=== PATIENT | female | born 1995 | race Caucasian/White ===

== ENCOUNTER 2017-02-07 17:43 | Emergency (ER) | payer BC ==
[2017-02-07 18:10] VITALS: BP 120/63
[2017-02-07] MEDS ORDERED: Sodium Chloride 0.9% 1,000 ML IV ONE (18:38)
[2017-02-07] MEDS ORDERED: HYDROmorphone 0.5 MG/0.5 ML Syringe IVPUSH ONE (18:38)
[2017-02-07] MEDS ORDERED: Ondansetron 4 MG/2 ML SDV IVPUSH ONE (18:38)
[2017-02-07] MEDS ORDERED: Sodium Chloride 0.9% 10 ML Syringe FLUSH PRN ×2 (18:38→20:08)
[2017-02-07] MEDS ORDERED: Iopamidol 612 MG/ML 150 ML Bottle IVPUSH ONE (20:08)
[2017-02-07] MEDS ORDERED: Diatrizoate Meglumine/Diatrizoate Sodium 37% 120 ML Bottle PO ONE (20:08)
--- NOTE | 2017-02-07 20:54 | EDM.PDOC ---
ED HPI GENERAL MEDICAL PROBLEM - General Chief Complaint: Abdominal Pain Stated Complaint: LOWER ABDOMINAL PAIN Time Seen by Provider: 02/07/17 18:30 Source of Information: Reports: Patient History Limitations: Reports: No Limitations - History of Present Illness INITIAL COMMENTS - FREE TEXT/NARRATIVE: 21-year-old female presents for evaluation and treatment of abdominal pain. Patient was sent over to us from the [facility] [facility]. Patient reports that she experienced some slight abdominal discomfort on Friday but it resolved on its own. She now reports severe lower abdominal pain and cramping that started about 45 minutes prior to arrival in the ER. She states it is located in her lower abdomen but is worse around her umbilicus. She reports associated symptoms of decreased appetite, nausea, vomiting, and diarrhea. She states that she has had about 3 or 4 loose watery stools per day since Friday. Patient reports that she vomited on Friday and Friday and a small amount of Friday. She denies any fevers, chills, dysuria, hematuria, melena, hematochezia or constipation. Patient has been taking Midol, Pepto and Tums without any relief. Patient reports that the bumps in the road worsen her abdominal pain. Patient is unsure of her last menstrual period states it has been at least 3 months ago. She is not on any medications. Reports normally she has an irregular menstrual cycle. States there is a chance of . Patient denies any alcohol or drug use. Last intake was about 3 hours prior to arrival in the ER. Lower Abdomen Pain Score (Numeric/FACES): 5 - Related Data Allergies Allergy/AdvReac Type Severity Reaction Status Date / Time No Known Allergies Allergy Verified 02/07/17 17:55 Home Meds: Home Meds Magnesium Citrate [Citroma] 296 ml PO ASDIRECTED #1 bottle 02/07/17 [Rx] Past Medical History Respiratory History: Reports: Asthma Genitourinary History: Reports: UTI, Recurrent Musculoskeletal History: Reports: Fracture Neurological History: Reports: Migraines Dermatologic History: Reports: Eczema - Infectious Disease History Infectious Disease History: Reports: Chicken Pox Social & Family History - Tobacco Use Smoking Status *Q: Never Smoker Second Hand Smoke Exposure: Yes - Caffeine Use Caffeine Use: Reports: Soda - Recreational Drug Use Recreational Drug Use: No ED ROS GENERAL - Review of Systems Review Of Systems: See Below Constitutional: Denies: Fever, Chills GI/Abdominal: Reports: Abdominal Pain (lower abd), Diarrhea, Decreased Appetite , Nausea, Vomiting. Denies: Constipation, Hematochezia, Melena : Reports: No Symptoms. Denies: Dysuria, Flank Pain, Hematuria ED EXAM, GI/ABD - Physical Exam Exam: See Below Exam Limited By: No Limitations General Appearance: Alert, WD/WN, No Apparent Distress Respiratory/Chest: No Respiratory Distress, Lungs Clear, Normal Breath Sounds Cardiovascular: Normal Peripheral Pulses, Regular Rate, Rhythm, No Murmur GI/Abdominal: Normal Bowel Sounds, Soft, Tenderness (periumbilical; left lower quadrant), Other (pain with heel percussion). No: Rebound, McBurney's Sign, Psoas Sign, Obturator Sign Neurological: Alert, Oriented, Normal Cognition Psychiatric: Normal Affect, Normal Mood Skin Exam: Warm, Dry, Normal Color Course - Vital Signs Last Recorded V/S: Last Vital Signs Temp 36.6 C 02/07/17 17:55 Pulse 70 02/07/17 17:55 Resp 16 02/07/17 17:55 BP 120/63 02/07/17 17:55 Pulse Ox 96 02/07/17 17:55 - Orders/Labs/Meds Labs: Laboratory Tests 02/07/17 02/07/17 02/07/17 Range/Units 18:10 18:10 18:45 WBC 10.35 H (3.98-10.04) K/mm3 RBC 5.05 (3.98-5.22) M/mm3 Hgb 15.3 (11.2-15.7) gm/L Hct 44.1 (34.1-44.9) % MCV 87.3 (79.4-94.8) fl MCH 30.3 (25.6-32.2) pg MCHC 34.7 (32.2-35.5) g/dl RDW Std Deviation 38.7 (36.4-46.3) fL Plt Count 307 (182-369) K/mm3 MPV 9.7 (9.4-12.3) fl Neutrophils % (Manual) 57 (40-60) % Band Neutrophils % 0 (0-10) % Lymphocytes % (Manual) 30 (20-40) % Atypical Lymphs % 0 % Monocytes % (Manual) 6 (2-10) % Eosinophils % (Manual) 7 H (0.7-5.8) % Basophils % (Manual) 0 L (0.1-1.2) Platelet Estimate Adequate Plt Morphology Comment Normal RBC Morph Comment Normal Sodium (136-145) mEq/L Potassium (3.5-5.1) mEq/L Chloride (98-107) mEq/L Carbon Dioxide (21-32) mEq/L Anion Gap (5-15) BUN (7-18) mg/dL Creatinine (0.55-1.02) mg/dL Est Cr Clr Drug Dosing mL/min Estimated GFR (MDRD) (>60) mL/min BUN/Creatinine Ratio (14-18) Glucose (74-106) mg/dL Calcium (8.5-10.1) mg/dL Total Bilirubin (0.2-1.0) mg/dL AST (15-37) U/L ALT (14-59) U/L Alkaline Phosphatase (46-116) U/L C-Reactive Protein (<1.0) mg/dL Total Protein (6.4-8.2) g/dl Albumin (3.4-5.0) g/dl Globulin gm/dL Albumin/Globulin Ratio (1-2) Urine Color Light yellow (Yellow) Urine Appearance Clear (Clear) Urine pH 7.0 (5.0-8.0) Ur Specific [place] 1.020 (1.005-1.030) Urine Protein Negative (Negative) Urine Glucose (UA) Negative (Negative) Urine Ketones Negative (Negative) Urine Occult Blood Negative (Negative) Urine Nitrite Negative (Negative) Urine Bilirubin Negative (Negative) Urine Urobilinogen 0.2 (0.2-1.0) Ur Leukocyte Esterase Negative (Negative) Urine RBC Not seen (0-5) /hpf Urine WBC 0-5 (0-5) /hpf Ur Epithelial Cells Not Reportable Ur Squamous Epith Cells 0-5 (0-5) /hpf Urine Bacteria Not seen (FEW) /hpf Urine Mucus Not seen (FEW) /hpf Urine HCG, Qual Negative (NEGATIVE) 02/07/17 Range/Units 18:45 WBC (3.98-10.04) K/mm3 RBC (3.98-5.22) M/mm3 Hgb (11.2-15.7) gm/L Hct (34.1-44.9) % MCV (79.4-94.8) fl MCH (25.6-32.2) pg MCHC (32.2-35.5) g/dl RDW Std Deviation (36.4-46.3) fL Plt Count (182-369) K/mm3 MPV (9.4-12.3) fl Neutrophils % (Manual) (40-60) % Band Neutrophils % (0-10) % Lymphocytes % (Manual) (20-40) % Atypical Lymphs % % Monocytes % (Manual) (2-10) % Eosinophils % (Manual) (0.7-5.8) % Basophils % (Manual) (0.1-1.2) Platelet Estimate Plt Morphology Comment RBC Morph Comment Sodium 142 (136-145) mEq/L Potassium 3.7 (3.5-5.1) mEq/L Chloride 105 (98-107) mEq/L Carbon Dioxide 26 (21-32) mEq/L Anion Gap 14.7 (5-15) BUN 8 (7-18) mg/dL Creatinine 0.7 (0.55-1.02) mg/dL Est Cr Clr Drug Dosing 111.62 mL/min Estimated GFR (MDRD) > 60 (>60) mL/min BUN/Creatinine Ratio 11.4 L (14-18) Glucose 98 (74-106) mg/dL Calcium 8.7 (8.5-10.1) mg/dL Total Bilirubin 0.3 (0.2-1.0) mg/dL AST 25 (15-37) U/L ALT 37 (14-59) U/L Alkaline Phosphatase 61 (46-116) U/L C-Reactive Protein < 0.2 (<1.0) mg/dL Total Protein 7.4 (6.4-8.2) g/dl Albumin 3.7 (3.4-5.0) g/dl Globulin 3.7 gm/dL Albumin/Globulin Ratio 1.0 (1-2) Urine Color (Yellow) Urine Appearance (Clear) Urine pH (5.0-8.0) Ur Specific [place] (1.005-1.030) Urine Protein (Negative) Urine Glucose (UA) (Negative) Urine Ketones (Negative) Urine Occult Blood (Negative) Urine Nitrite (Negative) Urine Bilirubin (Negative) Urine Urobilinogen (0.2-1.0) Ur Leukocyte Esterase (Negative) Urine RBC (0-5) /hpf Urine WBC (0-5) /hpf Ur Epithelial Cells Ur Squamous Epith Cells (0-5) /hpf Urine Bacteria (FEW) /hpf Urine Mucus (FEW) /hpf Urine HCG, Qual (NEGATIVE) Meds: Medications Discontinued Medications Generic Name Dose Route Start Last Admin Trade Name Freq PRN Reason Stop Dose Admin Diatrizoate Meglum/Diatrizoate Sod 90 ml 02/07/17 20:08 02/07/17 20:29 Gastrografin 37% PO 02/07/17 20:09 90 ml ONETIME ONE Administration Hydromorphone HCl 0.5 mg 02/07/17 18:38 02/07/17 18:48 Dilaudid IVPUSH 02/07/17 18:39 0.5 mg ONETIME ONE Administration Sodium Chloride 1,000 mls @ 999 mls/hr 02/07/17 18:38 02/07/17 18:50 Normal Saline IV 02/07/17 19:38 999 mls/hr ONETIME ONE Administration Iopamidol 125 ml 02/07/17 20:08 02/07/17 20:29 Isovue-300 (61%) IVPUSH 02/07/17 20:09 125 ml ONETIME ONE Administration Ondansetron HCl 4 mg 02/07/17 18:38 02/07/17 18:46 Zofran IVPUSH 02/07/17 18:39 4 mg ONETIME ONE Administration Sodium Chloride 10 ml 02/07/17 18:38 02/07/17 18:45 Saline Flush FLUSH 10 ml ASDIRECTED PRN Administration Keep Vein Open Sodium Chloride 10 ml 02/07/17 20:08 02/07/17 20:29 Saline Flush FLUSH 10 ml ONETIME PRN Administration IV FLUSH - Radiology Interpretation Free Text/Narrative:: Ct of the abdomen and pelvis impression per Dr. Landa: 1. No abnormality is identified on CT study of the abdomen and pelvis. CT Results Date: 02/07/17 - Re-Assessments/Exams Free Text/Narrative Re-Assessment/Exam: 02/07/17 21:27 lab studies include the following. White blood cell count mildly elevated at 10.35, hemoglobin 15.3 and platelets 307. CRP is less than 0.2. HCG is negative. sodium is 142, potassium 3.7 and chloride 105. Anion gap 14.7. UA is negative for any blood, nitrates, leukocytes, ketones or protein. I discussed the lab and CT results with the patient. She is now had several bowel movements due to the contrast from her CT. She reports good pain relief with the Dilaudid. I feel she likely had constipation and this will likely resolve with the oral contrast. I'll give her a bottle of mag citrate that she is to take if she continues to have discomfort. She is to return to the ER for symptoms change or worsen. She was offered a prescription for medication for the discomfort but she declined. Discharge instructions this documented. Departure - Departure Time of Disposition: 21:33 Disposition: Home, Self-Care 01 Condition: Fair Clinical Impression: Constipation - Discharge Information Prescriptions: Magnesium Citrate [Citroma] 296 ml PO ASDIRECTED #1 bottle Instructions: Constipation, Adult, [id number] Referrals: PCP,None [Primary Care Provider] - Forms: ED Department Discharge Additional Instructions: rest and make sure you are drinking plenty of fluids. If you do not have a large bowel movement from the contrast tonight, I recommend drinking half the bottle make citrate tomorrow. [id number] Tylenol Motrin as needed for pain relief. Follow-up with family medicine this week if your symptoms do not improve. Recommend Heidi Farrell or Mansi Heard. Please call [phone] to schedule with one of these providers at the same [facility]. Please return to the ER if your Symptoms change or worsen.
--- NOTE | 2017-02-07 21:03 | CT ---
CT abdomen and pelvis Technique: Multiple axial sections were obtained from above the dome of the diaphragm inferiorly through the pubic symphysis. Intravenous and oral contrast was utilized. Comparison: No previous study other than upright and supine abdominal x-ray of 08/07/16. Findings: Visualized lung bases shows nothing acute. Liver shows no focal parenchymal abnormality. No pericardial thickening is seen. Spleen size is normal. Kidneys shows symmetric contrast enhancement without hydronephrosis or mass. Adrenal glands show no nodule. Pancreas is within normal limits. Aorta shows no aneurysmal dilatation. No retroperitoneal adenopathy or mesenteric abnormalities are seen. Appendix is seen which appears normal. No bowel dilatation is seen. No pelvic mass or adenopathy is seen. No free fluid or inflammatory change is seen. Delayed images shows contrast within the bladder. Bone window settings were reviewed which appears within normal limits. Impression: 1. No abnormality is identified on CT study of the abdomen and pelvis. Diagnostic code #1
== END 2017-02-07 21:47 | disposition home or self-care (01) ==
LOC: JD.ED 17:43
DX: K59.00 Constipation, unspecified (principal); J45.909 Unspecified asthma, uncomplicated; Z87.440 Personal history of urinary (tract) infections
CPT/HCPCS: 36415; 74177; 80053; 81001; 81025; 85025; 86140; 96361; 96374; 96375; 99284; J1170; J2405; J7040; J7050; Q9963; Q9967

== ENCOUNTER 2023-08-04 08:04 | Inpatient (IN) | payer BC ==
[~2023-08-04 08:04] MED LIST: Lidocaine 1% 10 ML MDV ONE; Lidocaine 2% with EPINEPHrine 1:200,000 20 ML SDV ONE; Sodium Bicarbonate 8.4% 50 MEQ/50 ML SDV ONE
[2023-08-04] MEDS ORDERED: Ondansetron 4 MG/2 ML SDV IVPUSH PRN (08:19)
[2023-08-04] MEDS ORDERED: Lidocaine 1% 50 ML MDV INJECT PRN (08:19)
[2023-08-04] MEDS ORDERED: Nalbuphine HCl 10 MG/ 1ML Amp IVPUSH PRN (08:19)
[2023-08-04] MEDS ORDERED: Sodium Chloride 0.9% 10 ML Syringe FLUSH PRN (08:19)
[2023-08-04] MEDS ORDERED: Calcium Carbonate 500 MG Tab.Chew PO PRN (08:19)
[2023-08-04] MEDS: Lactated Ringers 1,000 ML IV SCH ×2 (08:30→12:21)
[2023-08-04] MEDS ORDERED: Oxytocin/Lactated Ringers 30 UNIT/500 ML BAG IV SCH (08:30)
[2023-08-04] MEDS ORDERED: diphenhydrAMINE 50 MG/ML SDV IVPUSH PRN (08:34)
[2023-08-04] MEDS ORDERED: ePHEDrine 50 MG/ML SDV IVPUSH PRN (08:34)
[2023-08-04] MEDS ORDERED: Bupivacaine/fentaNYL/NS 100 ML Bag EPIDUR PRN (08:34)
[2023-08-04 08:45] LABS: BASOPHILS PERCENT AUTO 0.2 % (0.0-1.0); EOSINOPHILS ABSOLUTE AUTO 0.1 K/mm3 (0.0-0.4); EOSINOPHILS PERCENT AUTO 0.5 % (0.0-6.0); HEMATOCRIT 37.4 % (37.0-47.0); HEMOGLOBIN 12.6 gm/dl (12.0-16.0); IMMATURE GRAN PERCENT AUTO 0.7 % (0.0-0.4); LYMPHOCYTES ABSOLUTE AUTO 2.5 K/mm3 (1.0-4.8); LYMPHOCYTES PERCENT AUTO 18.2 % (24.0-44.0); MEAN CORPUSCULAR HEMOGLOBIN 28.5 pg (28.0-32.0); MEAN CORPUSCULAR HGB CONC 33.7 g/dl (32.0-36.0); MEAN CORPUSCULAR VOLUME 84.6 fl (83.0-99.0); MEAN PLATELET VOLUME 12.1 fl (9.4-12.3); MONOCYTES ABSOLUTE AUTO 1.1 K/mm3 (0.0-0.8); NEUTROPHILS ABSOLUTE AUTO 9.8 K/mm3 (1.8-7.7); NEUTROPHILS PERCENT AUTO 72.4 % (41.0-71.0); PLATELET COUNT,PLT 217 K/mm3 (150-400); RED BLOOD CELL COUNT 4.42 M/mm3 (4.10-5.30); WHITE BLOOD CELL COUNT,WBC 13.48 K/mm3 (3.9-11.3)
[2023-08-04] MEDS: fentaNYL 100 MCG/2 ML SDV EPIDUR PRN ×2 (09:10→13:48)
[2023-08-04 09:46] LABS: CREATININE 0.6 mg/dL (0.55-1.02); EST CRCL DRUG DOSING (CG) 127.85 mL/min; URIC ACID 4.6 mg/dL (2.6-6.0)
[2023-08-04 11:00] LABS: CREATININE,URINE RAND 96.2 mg/dL (30.0-125.0); PROTEIN CREATININE RATIO,URINE 100.8 mg/g (0-149); PROTEIN,URINE RANDOM 9.7 mg/dL (0.0-11.8)
[2023-08-04] MEDS ORDERED: dexmedeTOMIDine HCl 200 MCG/2 ML SDV ONE (13:37)
[2023-08-04] MEDS ORDERED: fentaNYL 100 MCG/2 ML SDV ONE (13:37)
[2023-08-04] MEDS ORDERED: Witch Hazel Medicated Pads 40/Jar TOP PRN (18:23)
[2023-08-04] MEDS ORDERED: Docusate Sodium 100 MG Cap PO PRN (18:23)
[2023-08-04] MEDS ORDERED: Benzocaine/Menthol 20%-0.5% Spray 78 GM Cannister TOP PRN (18:23)
[2023-08-04] MEDS: Acetaminophen 325 MG Tab PO PRN (20:01)
[2023-08-05] MEDS: Ibuprofen 600 MG Tab PO PRN ×2 (02:33→12:34)
[2023-08-05] MEDS: Acetaminophen 325 MG Tab PO PRN (03:13)
[2023-08-05 16:45] VITALS: BP 136/78; PULSE 80
== END 2023-08-05 17:38 | disposition home or self-care (01) | DRG 560 ==
LOC: JD.OBCHECK 08:04 → JD.OB 08:07 → JD.OBCHECK 08:22 → JD.OB 08:23 → OBSVTOIN 15:38 → JD.OB 15:39
PROVIDERS: ADMIT Obstetrics & Gynecology; ATTEND Obstetrics & Gynecology
PROC: 10E0XZZ Delivery of Products of Conception, External Approach (ICD-10-PCS; principal; 2023-08-04)
PROC: 10907ZC Drainage of Amniotic Fluid, Therapeutic from Products of Conception, Via Natural or Artificial Opening (ICD-10-PCS; 2023-08-04)
PROC: 0HQ9XZZ Repair Perineum Skin, External Approach (ICD-10-PCS; 2023-08-04)
PROC: 3E0R3BZ Introduction of Anesthetic Agent into Spinal Canal, Percutaneous Approach (ICD-10-PCS; 2023-08-04)
PROC: 00HU33Z Insertion of Infusion Device into Spinal Canal, Percutaneous Approach (ICD-10-PCS; 2023-08-04)
DX: O70.0 First degree perineal laceration during delivery (principal); Z37.0 Single live birth; Z3A.37 37 weeks gestation of pregnancy
CPT/HCPCS: 36415; 51702; 59025; 59409; 82565; 82570; 83615; 84156; 84450; 84460; 84520; 84550; 85025; 86592; 86850; 86900; 86901; A9270-GY; J3010; J3490; J7120; J7999